=== PATIENT | female | born 1990 | race Caucasian/White ===

== ENCOUNTER 2016-07-07 21:33 | Emergency (ER) | payer OTHER ==
[2016-07-07 21:41] VITALS: BMI 51.1
--- NOTE | 2016-07-07 22:43 | EDPRACDOC ---
<Ge Mccoy - Last Filed: 07/08/16 02:06> - General Information Information Source: Patient Mode Of Arrival: Car - History of Present Illness Onset: 1 DAY HPI: PT PRESENTS WITH DISCOLORATION OF LEFT LEG THAT BEGAN TODAY. STATES SHE RECENTLY HAD GASTRIC SLEEVE, AND WAS RELEASED FROM THE HOSPITAL YESTERDAY DUE TO DEHYDRATION. PT STATES THE LEG IS PAINFUL. Mechanism: Reports: None Circumstances: Reports: Spontaneous History of: Reports: Other (ABDOMINAL SURGERY) Last Tetanus: UTD Severity: Reports: Moderate Able to Bear Weight: Limited Associated Signs & Symptoms: Reports: Numbness, Swelling Pain In: Reports: Foot, Ankle, Leg, Thigh <Eliza Gallagher - Last Filed: 07/08/16 02:12> - General Information Chief Complaint: Lower Leg Pain Stated Complaint: WEAKNESS Time Seen by Provider: 07/07/16 22:00 Home Medications: Home Medications Atenolol 25 mg PO DAILY 07/07/16 Norgestimate-Ethinyl Estradiol [Sprintec] 1 each PO DAILY 07/07/16 Ondansetron HCl [Zofran] 4 mg PO Q6H PRN 07/07/16 Promethazine HCl [Phenergan] 12.5 mg PO Q6 PRN 07/07/16 Scopolamine [Transderm-Scop] 1 each TD .Q3DAYS PRN 07/07/16 Allergies/Adverse Reactions: Allergies Allergy/AdvReac Type Severity Reaction Status Date / Time Latex, Natural Rubber Allergy Itching Verified 07/07/16 21:42 ED Past Medical History - History Reviewed Yes Nurses notes reviewed and agree except as marked - Patient Medical History Cardiac History: Reports: Hypertension <Eliza Gallagher - Last Filed: 07/08/16 02:12> EDM Review of Systems - Review of Systems ROS Negative Except as Marked: Yes All systems reviewed and were negative except as marked <Eliza Gallagher - Last Filed: 07/08/16 02:12> - Physical Exam Last recorded Vital Signs: Last Vital Signs Temp 98.2 F 07/08/16 00:41 Pulse 88 07/08/16 00:41 Resp 20 07/08/16 00:41 BP 134/78 07/08/16 00:41 Pulse Ox 99 07/08/16 00:41 Oxygen Pulse Oxygen Saturation 99 O2 Device Room Air Oxygen Flow Rate Fraction of Inspired Oxygen ( FIO2) <Ge Mccoy - Last Filed: 07/08/16 02:06> - Physical Exam Constitutional: Alert Oriented to: Time, Person, Place Last recorded Vital Signs: Last Vital Signs Temp 97.9 F 07/07/16 21:38 Pulse 104 07/07/16 21:38 Resp 20 07/07/16 21:38 BP 144/94 07/07/16 21:38 Pulse Ox 99 07/07/16 21:38 Oxygen Pulse Oxygen Saturation 99 O2 Device Room Air Oxygen Flow Rate Fraction of Inspired Oxygen ( FIO2) - HEENT Head: Normal ( normocephalic) Eye Exam: Normal (PERRL, EOMI, Sclera white) Oropharynx: Normal (Pharynx:Moist without exudate,Gums-no swelling) Nose: No Symptoms Reported (septum midline) Neck: Normal (FROM, trachea at midline) - Respiratory/Cardiovascular Respiratory: Normal - CTA (BBS clear to auscultation without adventitious sounds ) Cardiovascular: Tachycardia - GI Auscultation: Normal (NABS) Palpation: Normal (Soft,No rebound or guarding, non distended) Tenderness: Non tender Welch's Sign: Negative Rectal Exam: Deferred - Musculoskeletal Back: Normal (Non-Tender) Extremities: Cyanosis, Pedal Edema (1+ NON-PITTING), Pedal Pulse (2+) - Integumentary Skin: Normal, Warm, Dry Lymphatics: Normal (no adenopathy) - Neurologic Memory Impaired: Normal Motor Function: Normal (Normal tone, Pulses 2+ No cyanosis or edema, FROM) Cranial Nerve: Normal (CN II-X11 intact sensation, strength 5/5) Cerebellar: Normal Mood Description: Normal Perception: Normal <Eliza Gallagher - Last Filed: 07/08/16 02:12> - Results 07/07/16 23:15 07/07/16 23:15 WBC 8.9 xk/uL (3.8-10.8) 07/07/16 23:15 RBC 5.03 xM/uL (4.20-5.40) 07/07/16 23:15 Hgb 14.3 g/dL (12.0-16.0) 07/07/16 23:15 Hct 43.0 % (36-47) 07/07/16 23:15 MCV 85 fL (81-99) 07/07/16 23:15 MCH 28.4 pg (27-32) 07/07/16 23:15 MCHC 33.3 g/dl (33-36) 07/07/16 23:15 RDW 13.6 % (11.5-14.5) 07/07/16 23:15 Plt Count 128 xk/uL (130-400) L 07/07/16 23:15 MPV 9.0 fL (7.4-10.4) 07/07/16 23:15 Neut % (Auto) 70.3 % (45-76) 07/07/16 23:15 Lymph % (Auto) 19.4 % (17-44) 07/07/16 23:15 Vernon % (Auto) 9.3 % (3-10) 07/07/16 23:15 Eos % (Auto) 0.3 % (0-5) 07/07/16 23:15 Baso % (Auto) 0.7 % (0-2) 07/07/16 23:15 Absolute Neuts (auto) 6.23 xk/uL (1.7-8.2) 07/07/16 23:15 Absolute Lymphs (auto) 1.69 xk/uL (0.65-4.75) 07/07/16 23:15 PT 12.2 SEC (9.2-11.2) H 07/07/16 23:15 INR 1.2 07/07/16 23:15 APTT 25.9 SEC (22-35) 07/07/16 23:15 Puncture Site Right radial 07/08/16 01:55 pH 7.440 pH UNITS (7.35-7.45) 07/08/16 01:55 pCO2 34.0 mmHg (35-45) L 07/08/16 01:55 pO2 74.0 mmHg (80-100) L 07/08/16 01:55 HCO3 23.1 MMOL/L (22-26) 07/08/16 01:55 Total CO2 24.1 MMOL/L (23-27) 07/08/16 01:55 Base Excess -0.5 (+/- 2) 07/08/16 01:55 FiO2 % Ra 01/05/17 01:55 Specimen Drawn By Bkl 07/08/16 01:55 Sodium 141 mEq/L (137-146) 07/07/16 23:15 Potassium 4.0 mEq/L (3.5-5.1) 07/07/16 23:15 Chloride 101 mEq/L (98-107) 07/07/16 23:15 Carbon Dioxide 23 mMOL/L (22-33) 07/07/16 23:15 Anion Gap 21 mEq/L (8-16) H 07/07/16 23:15 BUN 6 MG/DL (7-17) L 07/07/16 23:15 Creatinine 0.80 MG/DL (0.52-1.04) 07/07/16 23:15 Estimated GFR (MDRD) > 60 mL/min (>=60) 07/07/16 23:15 Glucose 109 MG/DL (70-99) H 07/07/16 23:15 Calculated Osmolality 270 MOs/Kg (270-290) 07/07/16 23:15 Calcium 9.8 MG/DL (8.4-10.2) 07/07/16 23:15 Total Bilirubin 1.1 MG/DL (0.2-1.3) 07/07/16 23:15 AST 208 IU/L (14-36) H 07/07/16 23:15 ALT 392 IU/L (9-52) H 07/07/16 23:15 Alkaline Phosphatase 125 IU/L (38-126) 07/07/16 23:15 Creatine Kinase 30 IU/L (30-134) 07/07/16 23:15 Troponin I < 0.01 ng/mL (<.04) 07/07/16 23:15 Wua-P-Nlojmbftiii Pept 60 pg/mL (0-450) 07/07/16 23:15 Total Protein 7.9 G/DL (6.3-8.2) 07/07/16 23:15 Albumin 4.1 G/DL (3.5-5.0) 07/07/16 23:15 Beta HCG, Quant < 2.4 mIU/mL (<5) 07/07/16 23:15 Urine Color Ceci 07/07/16 23:30 Urine Clarity Sl cldy 07/07/16 23:30 Urine pH 6.0 (5.0-8.0) 07/07/16 23:30 Ur Specific [place] 1.025 (1.003-1.035) 07/07/16 23:30 Urine Protein 2+ (NEG/TRACE) H 07/07/16 23:30 Urine Glucose (UA) Neg (NEGATIVE) 07/07/16 23:30 Urine Ketones 2+ (NEGATIVE) H 07/07/16 23:30 Urine Occult Blood Neg (NEG/TRACE) 07/07/16 23:30 Urine Nitrite Neg (NEGATIVE) 07/07/16 23:30 Urine Bilirubin Neg (NEGATIVE) 07/07/16 23:30 Urine Urobilinogen 8 MG/DL (0-1) H 07/07/16 23:30 Ur Leukocyte Esterase Neg (NEGATIVE) 07/07/16 23:30 Urine RBC 0-2 (0-5) 07/07/16 23:30 Urine WBC 10-20 (0-5) H 07/07/16 23:30 Ur Epithelial Cells 4+ 07/07/16 23:30 Urine Bacteria 2+ (NEG/FEW) H 07/07/16 23:30 Urine Mucus Large (NEG/OCC) 07/07/16 23:30 Lab Results 07/08/16 07/07/16 07/07/16 01:55 23:30 23:15 WBC RBC Hgb Hct MCV MCH MCHC RDW Plt Count MPV Neut % (Auto) Lymph % (Auto) Vernon % (Auto) Eos % (Auto) Baso % (Auto) Absolute Neuts (auto) Absolute Lymphs (auto) PT INR APTT Puncture Site Right radial pH 7.440 pCO2 34.0 L pO2 74.0 L HCO3 23.1 Total CO2 24.1 Base Excess -0.5 FiO2 % Ra Specimen Drawn By Bkl Sodium Potassium Chloride Carbon Dioxide Anion Gap BUN Creatinine Estimated GFR (MDRD) Glucose Calculated Osmolality Calcium Total Bilirubin AST ALT Alkaline Phosphatase Creatine Kinase Troponin I [id number] Pept Total Protein Albumin Beta HCG, Quant Cancelled Urine Color Ceci Urine Clarity Sl cldy Urine pH 6.0 Ur Specific [place] 1.025 Urine Protein 2+ H Urine Glucose (UA) Neg Urine Ketones 2+ H Urine Occult Blood Neg Urine Nitrite Neg Urine Bilirubin Neg Urine Urobilinogen 8 H Ur Leukocyte Esterase Neg Urine RBC 0-2 Urine WBC 10-20 H Ur Epithelial Cells 4+ Urine Bacteria 2+ H Urine Mucus Large 07/07/16 07/07/16 07/07/16 23:15 23:15 23:15 WBC 8.9 RBC 5.03 Hgb 14.3 Hct 43.0 MCV 85 MCH 28.4 MCHC 33.3 RDW 13.6 Plt Count 128 L MPV 9.0 Neut % (Auto) 70.3 Lymph % (Auto) 19.4 Vernon % (Auto) 9.3 Eos % (Auto) 0.3 Baso % (Auto) 0.7 Absolute Neuts (auto) 6.23 Absolute Lymphs (auto) 1.69 PT 12.2 H INR 1.2 APTT 25.9 Puncture Site pH pCO2 pO2 HCO3 Total CO2 Base Excess FiO2 % Specimen Drawn By Sodium 141 Potassium 4.0 Chloride 101 Carbon Dioxide 23 Anion Gap 21 H BUN 6 L Creatinine 0.80 Estimated GFR (MDRD) > 60 Glucose 109 H Calculated Osmolality 270 Calcium 9.8 Total Bilirubin 1.1 AST 208 H ALT 392 H Alkaline Phosphatase 125 Creatine Kinase 30 Troponin I < 0.01 [id number] Pept 60 Total Protein 7.9 Albumin 4.1 Beta HCG, Quant < 2.4 Urine Color Urine Clarity Urine pH Ur Specific [place] Urine Protein Urine Glucose (UA) Urine Ketones Urine Occult Blood Urine Nitrite Urine Bilirubin Urine Urobilinogen Ur Leukocyte Esterase Urine RBC Urine WBC Ur Epithelial Cells Urine Bacteria Urine Mucus <Ge Mccoy - Last Filed: 07/08/16 02:06> - Differential Diagnosis Other - Re-evaluation Re-evaluation 1 Re-evaluation Time: 01:11 SPOKE WITH RADIOLOGIST, PT HAS CLOT FROM LEFT FEMORAL VEIN TO IVC. PT STATES SHE HAS HAD SOME MILD SHOB FOR THE PAST DAY, 02 SAT NOW 95%. MORE WORKUP WILL NEED TO BE DONE FOR PE. - Results 07/07/16 23:15 07/07/16 23:15 - EKG EKG #1 EKG Time: 23:03 -: Yes EKG interpreted by me Rate: bpm: 93 [place]: Normal Rhythm: NSR Block: None Hypertrophy: None ST: Nonsp <Eliza Gallagher - Last Filed: 07/08/16 02:12> - Departure Yes I personally saw and evaluated the patient. Disposition: Trans. to Other Hospital <Ge Mccoy - Last Filed: 07/08/16 02:06> - Departure Education/Counseling Given To: Patient Education/Counseling Given Regarding: Diagnosis, Treatment, Prognosis, Follow Up Decision to Transfer Time: 02:12 - Physician Consulted Surgery Time Called: 02:12 Provider Called: EDGAR MCARTHUR (WILL ACCEPT) Time Director Of Sales Returned Call: 02:12 Consult Reason: REQUEST HEPARIN DRIP <Eliza Gallagher - Last Filed: 07/08/16 02:12> - Departure Condition: Stable Final Diagnosis: Deep venous thrombosis of left femoral vein Qualifiers: Chronicity: acute Qualified Code(s): I82.412 - Acute embolism and thrombosis of left femoral vein
[2016-07-07 23:31] LABS: AUTOMATED BASOPHIL 0.7 % (0-2); AUTOMATED EOSINOPHIL 0.3 % (0-5); AUTOMATED LYMPH 19.4 % (17-44); AUTOMATED MONOCYTE 9.3 % (3-10); AUTOMATED NEUTROPHIL 70.3 % (45-76)
[2016-07-07 23:37] LABS: PARTIAL THROMB. TIME 25.9 SEC (22-35); PT-INR 1.2
[2016-07-07 23:41] LABS: BLOOD UREA NITROGEN 6 MG/DL (7-17); CALCIUM 9.8 MG/DL (8.4-10.2); CALCULATED OSMOLALITY 270 MOs/Kg (270-290); CHLORIDE 101 mEq/L (98-107); CPK TOTAL WITH POSSIBLE MB 30 IU/L (30-134); GLUCOSE 109 MG/DL (70-99); SODIUM LEVEL 141 mEq/L (137-146); TOTAL PROTEIN 7.9 G/DL (6.3-8.2)
--- NOTE | 2016-07-07 23:43 | DIRPT ---
CLINICAL DATA: Acute onset of left leg pain, swelling and thigh and calf discoloration. Initial encounter. EXAM: LEFT LOWER EXTREMITY VENOUS DOPPLER ULTRASOUND TECHNIQUE: Garcia-scale sonography with graded compression, as well as color Doppler and duplex ultrasound were performed to evaluate the lower extremity deep venous systems from the level of the common femoral vein and including the common femoral, femoral, profunda femoral, popliteal and calf veins including the posterior tibial, peroneal and gastrocnemius veins when visible. The superficial great saphenous vein was also interrogated. Spectral Doppler was utilized to evaluate flow at rest and with distal augmentation maneuvers in the common femoral, femoral and popliteal veins. COMPARISON: None. FINDINGS: Contralateral Common Femoral Vein: Respiratory phasicity is normal. No evidence of thrombus. Normal compressibility. Common Femoral Vein: No evidence of thrombus. Normal compressibility and response to augmentation. No respiratory phasicity is seen. Somewhat sluggish flow is noted within the common femoral vein. Saphenofemoral Junction: No evidence of thrombus. Normal compressibility and flow on color Doppler imaging. Profunda Femoral Vein: No evidence of thrombus. Normal compressibility and flow on color Doppler imaging. Femoral Vein: No evidence of thrombus. Normal compressibility and response to augmentation. No respiratory phasicity is seen. Somewhat sluggish flow was noted within the femoral vein. Popliteal Vein: No evidence of thrombus. Normal compressibility and response to augmentation. No respiratory phasicity is seen. Somewhat sluggish flow is noted within the popliteal vein. Calf Veins: No evidence of thrombus. Normal compressibility and flow on color Doppler imaging. Somewhat sluggish flow is noted within the visualized calf veins. Superficial Great Saphenous Vein: No evidence of thrombus. Normal compressibility and flow on color Doppler imaging. Somewhat sluggish flow is noted within the great saphenous vein. Venous Reflux: None. Other Findings: None. IMPRESSION: 1. No evidence of deep venous thrombosis. 2. Somewhat sluggish flow noted within the common femoral vein, femoral vein, popliteal vein, calf veins and superficial great saphenous vein. Associated lack of respiratory phasicity noted. Electronically Signed By: Caden Barry M.D. On: 07/07/2016 23:40
[2016-07-07 23:44] LABS: LEUKOCYTES/URINE NEG (NEGATIVE); NITRITE/URINE NEG (NEGATIVE); RBC/URINE 0-2 (0-5); URINE OCCULT BLOOD NEG (NEG/TRACE)
[2016-07-07 23:58] LABS: QUANTITATIVE SERUM HCG < 2.4 mIU/mL (<5)
[2016-07-08] MEDS ORDERED: Pharmacy Review for Metformin - IV Contrast Given SCH
[2016-07-08] MEDS ORDERED: Enoxaparin 1 mg per kg per dose SQ ONE (01:12)
--- NOTE | 2016-07-08 01:14 | DIRPT ---
CLINICAL DATA: Decreased flow within the left lower extremity. Assess for venous clot within the abdomen and pelvis. Worsening left leg pain. Initial encounter. EXAM: CT ABDOMEN AND PELVIS WITH CONTRAST TECHNIQUE: Multidetector CT imaging of the abdomen and pelvis was performed using the standard protocol following bolus administration of intravenous contrast. CONTRAST: 100 mL of Isovue 370 IV contrast COMPARISON: CT of the abdomen and pelvis performed 01/06/2009 FINDINGS: The visualized lung bases are clear. There appears to be occlusive thrombus noted within the left common femoral vein, external and internal iliac vein and common iliac vein. Mild surrounding inflammatory change and associated distention is noted. There is nonocclusive thrombus extending along the inferior vena cava, to just above the level of the renal veins. There is diffuse fatty infiltration involving several portions of the liver, similar in appearance to 2009 and most prominent at the caudate lobe. The spleen is unremarkable in appearance. The patient is status post cholecystectomy, with clips noted at the gallbladder fossa. The pancreas and adrenal glands are unremarkable. The kidneys are unremarkable in appearance. There is no evidence of hydronephrosis. No renal or ureteral stones are seen. No perinephric stranding is appreciated. No free fluid is identified. The small bowel is unremarkable in appearance. The stomach is within normal limits. No acute vascular abnormalities are seen. The appendix is normal in caliber and contains contrast, without evidence of appendicitis. Contrast progresses to the level of the proximal sigmoid colon. The colon is otherwise unremarkable. The bladder is decompressed and not well assessed. The uterus is unremarkable in appearance. The ovaries are relatively symmetric. No suspicious adnexal masses are seen. No inguinal lymphadenopathy is seen. No acute osseous abnormalities are identified. IMPRESSION: 1. Occlusive thrombus noted within the left common femoral vein, external and internal iliac vein, and common iliac vein. Mild surrounding inflammatory change and associated distention noted. Nonocclusive thrombus extends along the inferior vena cava, to just above the level of the renal veins. 2. Diffuse fatty infiltration within several portions of the liver. These results were called by telephone at the time of interpretation on 07/08/2016 at 1:11 am to PAULETTE GAY, who verbally acknowledged these results. Electronically Signed By: Caden Barry M.D. On: 07/08/2016 01:11
[2016-07-08] MEDS ORDERED: ENOXAPARIN SODIUM 100 MG, ENOXAPARIN SODIUM 40 MG SQ ONE ×2 (02:00)
[2016-07-08 02:02] LABS: ALLEN'S TEST PASS; BEb -0.5 (+/- 2)
[2016-07-08 02:03] LABS: ABG Draw Site Right Radial; ABG Draw Tech BKL; TCO2 24.1 MMOL/L (23-27)
[2016-07-08] MEDS ORDERED: HEPARIN 500 ML IV SCH ×2 (02:05→03:00)
[2016-07-08 02:36] LABS: CPK TOTAL WITH POSSIBLE MB 28 IU/L (30-134)
[2016-07-08 03:16] VITALS: BP 143/98; PULSE 107; TEMP 98.1
== END 2016-07-08 03:05 | disposition short-term general hospital (02) ==
LOC: ED 21:33
DX: I82.412 Acute embolism and thrombosis of left femoral vein (principal); R10.9 Unspecified abdominal pain
CPT/HCPCS: 36415; 36600; 74177; 80053; 81001; 82550; 82803; 83880; 84484; 84702; 85025; 85610; 85730; 93005; 93971; 96365; 96372; 99284; A9698; J1644; J1650